=== PATIENT | male | born 1955 ===

== ENCOUNTER 2023-04-29 15:31 | Outpatient (REF) | payer MEDICARE, OTHER, SELFPAY | END 2023-04-29 15:32 | disposition home or self-care (01) | LOC: HO.SH 15:31 | PROVIDERS: Visit Provider Internal Medicine | DX: Z46.1 Encounter for fitting and adjustment of hearing aid (principal); H90.3 Sensorineural hearing loss, bilateral | CPT/HCPCS: 92557; 92567 ==